=== PATIENT | male | born 1990 | race American Indian/Alaskan Native ===

== ENCOUNTER 2020-06-21 21:46 | Emergency (ER) | payer SELFPAY ==
[2020-06-22 00:37] VITALS: BP 148/99
--- NOTE | 2020-06-22 03:33 | Emergency Department Report ---
ED General Adult HPI - General Chief complaint: Extremity Injury, Lower Stated complaint: POSS HEMORRHOIDS,FEET PAIN Source: patient Mode of arrival: Ambulatory Limitations: No Limitations - History of Present Illness Initial comments: Patient is a 29-year-old -[place] male with no past medical history presents to the ED with acute onset persistent rectal pain for the last 3 days. Patient states that the pain is worse with having a bowel movement as he has to push had to expel stool. Patient denies dizziness, syncope, fever, chills, abdominal pain, nausea and vomiting, diarrhea, hematochezia, hematemesis, testicular pain, dysuria urinary frequency and urgency, fever and chills or low back pain and hematuria. MD Complaint: rectal pain -: Sudden, days(s) (3) Radiation: non-radiation Severity scale (0 -10): 4 Quality: burning, aching, sharp Improves with: rest Worsens with: other (bowel movement) Associated Symptoms: denies other symptoms. denies: confusion, chest pain, cough, diaphoresis, fever/chills, headaches, loss of appetite, malaise, nausea/vomiting, rash, shortness of breath, syncope, weakness Treatments Prior to Arrival: none - Related Data Previous Rx's Medication Instructions Recorded Last Taken Type Cyclobenzaprine [Flexeril] 10 mg PO QHS PRN #10 tablet 11/03/18 Unknown Rx Dibucaine 1% [Nupercainal] 1 applicatio PA TID PRN #1 tube 06/22/20 Unknown Rx Docusate Sodium [Colace CAP] 100 mg PO BID PRN #60 capsule 06/22/20 Unknown Rx Hydrocortisone [Anusol-Hc 2.5% TOP 1 applic RC Q12H #1 tube 06/22/20 Unknown Rx CREAM] Ibuprofen [Motrin 600 MG tab] 600 mg PO Q8H PRN #20 tablet 06/22/20 Unknown Rx Allergies Allergy/AdvReac Type Severity Reaction Status Date / Time No Known Allergies Allergy Unverified 11/03/18 13:46 ED Review of Systems ROS: Stated complaint: POSS HEMORRHOIDS,FEET PAIN Other details as noted in HPI Constitutional: denies: chills, fever Eyes: denies: eye pain, eye discharge, vision change ENT: denies: ear pain, throat pain Respiratory: denies: cough, shortness of breath, wheezing Cardiovascular: denies: chest pain, palpitations Endocrine: no symptoms reported Gastrointestinal: other (Rectal pain). denies: abdominal pain, nausea, diarrhea Genitourinary: denies: urgency, dysuria Musculoskeletal: denies: back pain, joint swelling, arthralgia Skin: denies: rash, lesions Neurological: denies: headache, weakness, paresthesias Psychiatric: denies: anxiety, depression Hematological/Lymphatic: denies: easy bleeding, easy bruising ED Past Medical Hx - Past Medical History Previous Medical History?: No - Surgical History Past Surgical History?: Yes Additional Surgical History: Club feet - Social History Smoking Status: Current Every Day Smoker - Medications Home Medications: Home Medications Medication Instructions Recorded Confirmed Last Taken Type Cyclobenzaprine [Flexeril] 10 mg PO QHS PRN #10 tablet 11/03/18 Unknown Rx Dibucaine 1% [Nupercainal] 1 applicatio PA TID PRN #1 tube 06/22/20 Unknown Rx Docusate Sodium [Colace CAP] 100 mg PO BID PRN #60 capsule 06/22/20 Unknown Rx Hydrocortisone [Anusol-Hc 2.5% TOP 1 applic RC Q12H #1 tube 06/22/20 Unknown Rx CREAM] Ibuprofen [Motrin 600 MG tab] 600 mg PO Q8H PRN #20 tablet 06/22/20 Unknown Rx ED Physical Exam - General Limitations: No Limitations General appearance: alert, in no apparent distress - Head Head exam: Present: atraumatic, normocephalic, normal inspection - Eye Eye exam: Present: normal appearance, PERRL, EOMI Pupils: Present: normal accommodation - ENT ENT exam: Present: normal exam, normal orophraynx, mucous membranes moist, TM's normal bilaterally, normal external ear exam - Neck Neck exam: Present: normal inspection, full ROM. Absent: tenderness, lymphadenopathy - Respiratory Respiratory exam: Present: normal lung sounds bilaterally. Absent: respiratory distress, wheezes, rales, chest wall tenderness, accessory muscle use, decreased breath sounds, other - Cardiovascular Cardiovascular Exam: Present: regular rate, normal rhythm, normal heart sounds. Absent: systolic murmur, diastolic murmur, rubs, gallop - GI/Abdominal GI/Abdominal exam: Present: soft, normal bowel sounds. 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 Absent: prostate tenderness - Extremities Exam Extremities exam: Present: normal inspection, full ROM, normal capillary refill. Absent: pedal edema, joint swelling - Back Exam Back exam: Present: normal inspection, full ROM. Absent: tenderness, CVA tenderness (R), CVA tenderness (L), muscle spasm, paraspinal tenderness, vertebral tenderness - Neurological Exam Neurological exam: Present: alert, oriented X3, CN II-XII intact, normal gait, reflexes normal - Psychiatric Psychiatric exam: Present: normal affect, normal mood - Skin Skin exam: Present: warm, dry, intact, normal color. Absent: rash ED Course Vital Signs 06/22/20 00:15 Temperature 98.5 F Pulse Rate 73 Respiratory 18 Rate Blood Pressure 148/99 O2 Sat by Pulse 99 Oximetry ED Medical Decision Making - Medical Decision Making This is a 29-year-old -[place] male with no past medical history presents to the ED with acute onset persistent rectal pain for the last 3 days. Patient states that the pain is worse with having a bowel movement as he has to push had to expel stool. In the ED, patient is alert and oriented x3 and is not in distress. Patient was discharged home on medication based on the physical exam findings of internal hemorrhoids. Patient was advised to return to the ED immediately if symptoms get worse, otherwise follow-up with his primary care physician in 7 to 10 days for reevaluation. Patient was also advised to increase fluid intake and high-fiber in his diet to improve on his stool texture and prevent constipation. - Differential Diagnosis Constipation; hemorrhoids; anal tear; anal fissures Critical care attestation.: If time is entered above; I have spent that time in minutes in the direct care of this critically ill patient, excluding procedure time. ED Disposition Clinical Impression: Rectal or anal pain, Hemorrhoids without complication Tear of anal skin Qualifiers: Encounter type: initial encounter Qualified Code(s): S31.831A - Laceration without foreign body of anus, initial encounter Constipation Qualifiers: Constipation type: other constipation type Qualified Code(s): K59.09 - Other constipation Disposition: DC-01 TO HOME OR SELFCARE Is pt being admited?: No Does the pt Need Aspirin: No Condition: Stable Instructions: Constipation (ED), Hemorrhoids (ED) Additional Instructions: Take medications as as advised, drink plenty of fluids, increase high-fiber in your diet and follow-up with your primary care physician in 5 to 7 days for reevaluation. Return to the ED immediately if symptoms get worse. Prescriptions: Hydrocortisone [Anusol-Hc 2.5% TOP CREAM] 1 applic RC Q12H #1 tube Docusate Sodium [Colace CAP] 100 mg PO BID PRN #60 capsule PRN Reason: Constipation Ibuprofen [Motrin 600 MG tab] 600 mg PO Q8H PRN #20 tablet PRN Reason: Pain Dibucaine 1% [Nupercainal] 1 applicatio PA TID PRN #1 tube PRN Reason: Pain , Severe (7-10) Referrals: [facility] [Provider Group] - 3-5 Days Time of Disposition: 03:31 Print Language: TAJIK
== END 2020-06-22 03:45 | disposition home or self-care (01) ==
LOC: ED 21:46
DX: S31.831A Laceration without foreign body of anus, initial encounter (principal); K64.9 Unspecified hemorrhoids; K59.00 Constipation, unspecified; F17.200 Nicotine dependence, unspecified, uncomplicated; Z98.890 Other specified postprocedural states; Z79.1 Long term (current) use of non-steroidal anti-inflammatories (NSAID); Z79.899 Other long term (current) drug therapy; X58.XXXA Exposure to other specified factors, initial encounter; Y93.89 Activity, other specified; Y92.89 Other specified places as the place of occurrence of the external cause; Y99.8 Other external cause status
CPT/HCPCS: 99282